=== PATIENT | male | born 1985 | race Caucasian/White ===

== ENCOUNTER 2017-05-27 18:47 | Emergency (ER) | payer OTHER ==
[2017-05-27 18:53] VITALS: BP 153/92; PULSE 65; TEMP 98.4; BMI 27.4
[2017-05-27] MEDS ORDERED: KETOROLAC TROMETHAMINE 60 MG/2 ML VIAL IM ONE (19:51)
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
[2017-05-27] MEDS ORDERED: KETOROLAC TROMETHAMINE 60 MG/2 ML VIAL ONE (19:55)
== END 2017-05-27 20:31 | disposition home or self-care (01) ==
LOC: JERFT 18:47
PROC: 3E0233Z Introduction of Anti-inflammatory into Muscle, Percutaneous Approach (ICD-10-PCS; principal; 2017-05-27)
DX: M62.838 Other muscle spasm (principal); V49.59XD Passenger injured in collision with other motor vehicles in traffic accident, subsequent encounter
CPT/HCPCS: 99281-25